=== PATIENT | male | born 1990 | race Caucasian/White ===

== ENCOUNTER → 2017-11-08 | Outpatient (CLI) | payer OTHER ==
[~2017-11-08] MED LIST: BUPR-83 PO
== END | disposition home or self-care (01) ==
LOC: C.LAB 16:09
PROVIDERS: ATTEND Nurse Practitioner Adult Health
DX: Z11.3 Encounter for screening for infections with a predominantly sexual mode of transmission (principal); E55.9 Vitamin D deficiency, unspecified